=== PATIENT | female | born 1985 | race Two or more races ===

== ENCOUNTER 2017-10-19 10:07 | Emergency (ER) | payer SELFPAY ==
[~2017-10-19] VITALS: Ht 152.4 cm; Wt 47.6 kg
[2017-10-19 10:59] VITALS: BP 119/68
== END 2017-10-19 11:33 | disposition home or self-care (01) ==
LOC: ER 10:07 → EDSEX 10:07 → ER 11:33
DX: S60.112A Contusion of left thumb with damage to nail, initial encounter (principal); W23.0XXA Caught, crushed, jammed, or pinched between moving objects, initial encounter; Y93.89 Activity, other specified; Y99.8 Other external cause status; Y92.89 Other specified places as the place of occurrence of the external cause
CPT/HCPCS: 73130